=== PATIENT | female | born 1975 | race Two or more races ===

== ENCOUNTER 2016-10-25 12:43 | Emergency (ER) | payer BC ==
[~2016-10-25] VITALS: Ht 147.3 cm; Wt 41.7 kg
--- NOTE | ~2016-10-25 | EKG ---
PATIENT: GAVI AGGARWAL UNIT #: [id number] Ventricular Rate: 75 BPM Atrial Rate: 75 BPM P-R Interval: 112 ms QRS Duration: 70 ms Q-T Interval: 366 ms QTC Calculation(Bezet): 408 ms P Warfield: 41 degrees Calculated R Warfield: 59 degrees Calculated T Warfield: 64 degrees Diagnosis Line: Normal sinus rhythm Diagnosis Line: Normal ECG Diagnosis Line: When compared with ECG of 26-JUN-2015 15:42, Diagnosis Line: No significant change was found Diagnosis Line: Confirmed by NAVEED BOLTON MD ([id number]) on 10/27/2016 Diagnosis Line: 2:51:51 PM INTERPRETING MD: CHE NOVOA
[~2016-10-25 12:43] MED LIST: ESTRACE1 MG PO; FLAGYL250 M1 PO; LEVAQUIN PO; MOBIC PO; MULTI-DAY VITAM1 TAB PO; NORTRIPTYLINE H75 MG PO; OMEPRAZOLE40 M1 PO; ZOFRAN PO
[2016-10-25 14:53] LABS: POC - CKMB 1.5 ng/mL (0.0-7.9); POC - TROPONIN <0.05 ng/mL (<=0.05)
[2016-10-25 14:54] LABS: BASOPHIL# 0.1 X10e3 (0-0.3); BASOPHIL% 0.8 % (0-2.5); EOSINOPHIL# 0.1 X10e3 (0-0.7); EOSINOPHIL% 0.6 % (0.0-7.0); HEMATOCRIT 38.8 % (35.0-45.0); HEMOGLOBIN 12.7 gm/dL (12.0-16.0); LYMPHOCYTE# 2.6 X10e3 (1.0-3.5); LYMPHOCYTE% 30.8 % (17.0-45.0); MEAN CORPUSCULAR HEMOGLOBIN 28.8 PG (28-34); MEAN CORPUSCULAR HGB CONC 32.7 g/dL (30-36); MEAN PLATELET VOLUME 7.4 FL (6.5-11.5); MONOCYTE# 0.6 X10e3 (0-1.0); NEUTROPHIL# 5.2 X10e3 (1.5-7.1); NEUTROPHIL% 60.8 % (40-75); PLATELET COUNT 284 X10e3 (140-420); RED BLOOD COUNT 4.41 X10e (3.90-5.30); RED CELL DISTRIBUTION WIDTH 13.6 % (11.0-15.5); WHITE BLOOD COUNT 8.6 X10e3 (4.0-10.5)
[2016-10-25 14:58] LABS: DIFF IND NO
[2016-10-25 15:15] LABS: ALBUMIN SERUM 4.7 g/dL (3.5-5.0); BILIRUBIN, DIRECT 0.1 mg/dL (0.0-0.2); BILIRUBIN,INDIRECT 0.8 mg/dL (0.0-0.9); BILIRUBIN,TOTAL 0.9 mg/dL (0.2-2.0); BUN/CREATININE RATIO 16.66; CALCIUM SERUM 9.4 mg/dL (8.4-10.2); CREATININE SERUM 0.9 mg/dL (0.6-1.4); GLOM FILT RATE Estimated 78.4 mL/min (>60); POTASSIUM 3.7 mmol/L (3.5-5.1); PROTEIN TOTAL SERUM 8.2 g/dL (6.0-8.3)
== END 2016-10-25 15:43 | disposition home or self-care (01) ==
LOC: CED 12:43
PROVIDERS: Emergency Medicine
DX: R20.2 Paresthesia of skin (principal); E16.2 Hypoglycemia, unspecified; Z87.442 Personal history of urinary calculi; K21.9 Gastro-esophageal reflux disease without esophagitis; I10 Essential (primary) hypertension; Z90.710 Acquired absence of both cervix and uterus; Z88.5 Allergy status to narcotic agent; Z88.8 Allergy status to other drugs, medicaments and biological substances
CPT/HCPCS: 36415; 80048; 80076; 82553; 82947; 83735; 84484; 85025; 93005; 96374; 99284; J2405